=== PATIENT | male | born 1945 | race Caucasian/White ===

== ENCOUNTER 2019-01-26 01:29 | Inpatient (IN) | payer MEDICARE, OTHER ==
[2019-01-26] VITALS (17 sets, daily range): BP systolic 133–195; BP diastolic 66–99
[~2019-01-26] VITALS: Ht 170.2 cm; Wt 92.2 kg
[2019-01-26] MEDS ORDERED: FELO10TA PO (01:39)
[2019-01-26] MEDS ORDERED: ALTA1CAP4 PO (01:39)
[2019-01-26] MEDS ORDERED: CLON0.5T17 PO (01:39)
[2019-01-26] MEDS ORDERED: ATOR40TA75 PO (01:39)
[2019-01-26 02:14] LABS: BASO % 0.3 % (0.0-1.0); EOS # 0.2 10^3/uL (0.0-0.5); EOS % 1.7 % (0.0-3.0); HEMOGLOBIN 15.1 g/dl (13.5-17.5); LYMPH # 1.2 10^3/uL (1.5-5.0); LYMPH % 9.5 % (24.0-44.0); MEAN CORPUSCULAR HGB CONC 33.6 g/dl (32.0-36.5); MEAN CORPUSCULAR VOLUME 95.3 fl (80.0-96.0); MONO # 1.6 10^3/uL (0.0-0.8); MONO % 12.4 % (0.0-5.0); NEUTROPHILS # 9.5 10^3/uL (1.5-8.5); NEUTROPHILS % 75.9 % (36.0-66.0); PLATELET COUNT, AUTOMATED 179 10^3/uL (150-450); RED BLOOD COUNT 4.72 10^6/uL (4.30-6.10); WHITE BLOOD COUNT 12.5 10^3/uL (4.0-10.0)
[2019-01-26 02:51] LABS: BLOOD UREA NITROGEN 23 MG/DL (7-18); CALCIUM LEVEL 9.8 MG/DL (8.8-10.2); CARBON DIOXIDE LEVEL 29 MEQ/L (21-32); CHLORIDE LEVEL 105 MEQ/L (98-107); CREATININE FOR GFR 1.41 MG/DL (0.70-1.30); GLOMERULAR FILTRATION RATE 52.6 (>42); GLUCOSE, FASTING 136 MG/DL (70-100); POTASSIUM SERUM 3.9 MEQ/L (3.5-5.1); SODIUM LEVEL 140 MEQ/L (136-145)
[2019-01-26 03:07] LABS: ALBUMIN 3.9 GM/DL (3.2-5.2); ALT/SGPT 38 U/L (12-78); BILIRUBIN,DIRECT 0.3 MG/DL (0.0-0.2); BILIRUBIN,TOTAL 1.1 MG/DL (0.2-1.0); LIPASE 151 U/L (73-393); TOTAL PROTEIN 6.9 GM/DL (6.4-8.2)
[2019-01-26 03:24] LABS: TROPONIN I < 0.02 NG/ML (< 0.10)
[2019-01-26] MEDS ORDERED: PANTOPRAZOLE 40MG INJ (PROTONIX) (C9113) IV ONE (04:00)
[2019-01-26] MEDS ORDERED: GI COCKTAIL 50ML BTL(HYOSCYAMINE/MAALOX/LIDOCAINE VISCOUS)(1:3:1) PO ONE (04:00)
--- NOTE | 2019-01-26 05:40 | REPVR ---
PROCEDURE INFORMATION: Exam: US Abdomen Limited, Right Upper Quadrant Exam date and time: 01/26/19 (4:41am) Clinical history: 74 year old male. Acute RUQ pain. Evaluate for cholecystitis. TECHNIQUE: Imaging protocol: Real-time ultrasound of the abdomen with image documentation. Examination was focused on the right upper quadrant. COMPARISON: US RENAL of 06/10/14 FINDINGS: The liver is visually normal in size, with fatty infiltration. Distended gallbladder (meauring 10 x 4 x 4 cm in size)). Mildly thickened gallbladder wall (4.7 mm thicknss). Prominent gallstone (1.5 cm size). No pericholecystic fluid is appreciated. The CBD is not dilated (4.9 mm diameter). The pancreas is obscured by bowel gas. The right kidney measures 10.5 cm in length, with no hydronephrosis appreciated. Right upper renal pole cyst (2.4 x 2.2 x 2.4 cm size). No ascites is seen. IMPRESSION: Cannot exclude acute cholecystitis. Clinical correlation is needed. Prominent gallstone (1.5 cm size). Distended gallbladder. Thickened gallbladder wall (4.7 mm thickness). No biliary obstruction. If felt appropriate, can obtain nuclear medicine biliary scan for further evaluation. Electronically signed by: Bethany Pickering On 01/26/2019 05:40:31 AM
[2019-01-26] MEDS ORDERED: MORPHINE 4 MG/ML 1ML VIAL/SYRINGE (J2270) IV ONE ×2 (06:45→08:15)
[2019-01-26] MEDS: GASTROGRAFIN SOLUTION 30ML PO SCH ×2 (07:13→07:55)
[2019-01-26 08:19] LABS: CPK CREATINE PHOSPHOKINASE 53 U/L (39-308); MB/CK RELATIVE INDEX 1.89 (< OR =4); TROPONIN I < 0.02 NG/ML (< 0.10)
[2019-01-26] MEDS ORDERED: PIPERACILLIN/TAZOBACTAM SOD 3.375 GM in D5W MINI-BAG PLUS 50 ML IV ONE (09:00)
[2019-01-26] MEDS ORDERED: ISOVUE-370 76% 100ML VIAL (Q9967) As Ordered ONE (09:06)
[2019-01-26] MEDS ORDERED: NS 1,000 ML IV SCH (09:08)
[2019-01-26] MEDS ORDERED: diphenhydrAMINE INJ 50MG/ML VIAL (J1200) IV PRN (09:15)
[2019-01-26] MEDS ORDERED: ONDANSETRON 4MG/2ML VIAL (J2405) IV PRN ×2 (09:15→11:45)
[2019-01-26] MEDS ORDERED: NALOXONE INJ 0.4 MG/1 ML VIAL (J2310) IV PRN (09:15)
[2019-01-26] MEDS ORDERED: GLUCAGON FOR INJ 1 MG VIAL (J1610) SC PRN (09:15)
[2019-01-26] MEDS ORDERED: NS 1,000 ML IV ONE (09:15)
[2019-01-26] MEDS ORDERED: NALBUPHINE HCL 10 MG/ML AMP (J2300) IV PRN (09:15)
[2019-01-26] MEDS ORDERED: DEXTROSE 50% 50 ML SYRINGE IV PRN (09:15)
[2019-01-26] MEDS ORDERED: GLUCOSE 4 GM CHEW TABLET PO PRN (09:15)
[2019-01-26] MEDS ORDERED: MORPHINE 1MG/ML IN 0.9% NACL 100ML IV BAG IV PRN (09:15)
[2019-01-26] MEDS ORDERED: EPIDURAL/PCA KEYS XX PRN (09:15)
[2019-01-26] MEDS ORDERED: ASPI81TA26 PO (09:47)
[2019-01-26] MEDS ORDERED: FELO5TAB PO (09:47)
[2019-01-26] MEDS ORDERED: ADVI100T PO (09:47)
[2019-01-26] MEDS ORDERED: hydrALAZINE INJ 20 MG/ML VIAL IV ONE (10:00)
--- NOTE | 2019-01-26 10:04 | REP ---
CT ABDOMEN AND PELVIS WITH IV AND ORAL CONTRAST: HISTORY: Generalized abdominal pain. Comparison CT study June 27, 2014. CT CONTRAST DOSE: A 100 mL of intravenous Isovue 370. CT FINDINGS: Preliminary digital slater apprentice radiograph is noncontributory. The lung bases are clear on axial CT images. Liver and spleen are normal in size homogeneous in texture. There is an accessory splenule. The gallbladder is mildly distended and shows focal gallbladder wall thickening and enhancement. No stone is seen. The gallbladder measures up to 10.5 cm in length. No pancreatic abnormality is seen. There is a 2.5 cm cyst in the upper pole right kidney. Kidneys are otherwise morphologically intact. Vascular calcification is noted in a normal caliber aorta. There is mild left colonic diverticulosis without CT evidence of diverticulitis. No abdominal wall defect is seen. The prostate gland is mildly enlarged. Urinary bladder and seminal vesicles are unremarkable. A normal appendix is seen in the central pelvis. IMPRESSION: Left colonic diverticulosis. No CT evidence of diverticulitis. Normal appendix. Mildly distended gallbladder. Small cyst right kidney. Enlarged prostate. Otherwise unremarkable. Electronically Signed by José Coburn MD 01/26/2019 03:32 P
[2019-01-26] MEDS: D5W/0.45% SODIUM CHLORIDE 1,000 ML IV SCH ×2 (10:54→22:37)
[2019-01-26 10:55] LABS: HEMOGLOBIN A1c 5.8 %
[2019-01-26] MEDS: MORPHINE 4 MG/ML 1ML VIAL/SYRINGE (J2270) IV PRN ×2 (12:09→22:39)
[2019-01-26] MEDS: NITROGLYCERIN 2% OINT 1 GM *U/D* PKT TOP SCH ×2 (12:18→17:20)
--- NOTE | 2019-01-26 13:36 | HPE ---
DATE OF ADMISSION: 01/26/2019 PRIMARY CARE PHYSICIAN: Nathanael Pickering MD IN 2016, NO PRIMARY CARE PHYSICIAN CURRENTLY, LIVES IN [place] CHIEF COMPLAINT: Right upper quadrant abdominal pain since Friday. HISTORY OF PRESENT ILLNESS: This is a 74-year-old male with a past medical history significant for hypertension, hyperlipidemia, chronic kidney disease stage III, impaired fasting glucose, increased prostate-specific antigen (PSA) with prostate biopsy in 2008, obesity, bipolar disorder, nonalcoholic fatty liver disease, benign prostatic hypertrophy (BPH), lumbar disc disease and insomnia presented to the emergency room with complaints of right upper quadrant abdominal pain noted around 10 p.m. on Friday. The patient was thrashing about all night into Friday morning. He had a little bit of oyster crackers about 7 p.m. on Friday, but nothing since. It has been progressively worsening, took two tablets of Tylenol 200 mg one time without any relief. The patient had episodes of nausea without vomiting. Right upper quadrant pain and epigastric pain started to move across the abdomen, in the upper quadrants left and right. No radiation to the scapula or the back. The patient had half a shaved steak sandwich and Wolof fries Friday evening at 7 p.m. and has felt nauseous since. No fever or chills at home. Pain has been constant, rated as 2 out of 10, when he lays back and does not move, worse when he stands up and moves around. Feels like this is rock solid pain. No prior history in the past. He did not feel well and decided to come in for further evaluation. said he has been drinking maybe at most a half a bottle of water and half a wellington anuj. 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 The patient says that it is better sometimes to put pressure on his right side and to lay very, very still. The patient otherwise denies any chest pain, shortness of breath, palpitations, weight gain or weight loss, he has noted worsening when he eats fried foods and has decided not to eat much because of increasing pain. He otherwise denies any dysuria or urgency. Denies any frequency, flank pain. No constipation or diarrhea. No prior history of gallstones. No heavy alcohol abuse. says he drinks two trey, maybe two to three times a week, no heavily. The patient is generally healthy according to the , has a bike in the garage that he uses during the cold months, but usually rides his bike 10 miles about four times a week. No prior history of coronary artery disease (CAD) or congestive heart failure (CHF). Previously smoked in his 20s but has not smoked any cigarettes for decades. Hospitalist was called to admit for acute cholecystitis. PAST MEDICAL HISTORY: Bipolar disorder. Insomnia. Nonalcoholic fatty liver disease. BPH with lower urinary tract symptoms (LUTS). History of acute prostatitis. Chronic leukocytosis. Lumbar disc disease. Hypertension. Hyperlipidemia. Chronic kidney disease stage III. Ultrasound consistent with medical renal disease, a 19 mm renal cyst on the right. Impaired fasting glucose. Increased PSA with prostate biopsy [place] [address] Lu. Obesity. ALLERGIES: 1. NORVASC causing nausea. SURGICAL HISTORY: Repaired upper eyelid Repaired Achilles tendon. Bilateral cataract surgery. Colonoscopy with hyperplastic polyps, adenomatous polyp, by Dr. Bob in 2002. Left lateral forehead lipoma excision. FAMILY HISTORY: Mother and father are in their 80s of old age, unknown medical problems. SOCIAL HISTORY: Former smoker in his 20s. He has not touched any cigarettes for decades. The patient drinks alcohol one to two glasses of wine about three times a week socially. 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 He has two children from a previous marriage, a son in [place], another son in [place] with grandchildren. He also has a stepchild with his current . His Shyann is the healthcare proxy. He is a F[employer]. The emergency contact number cell phone for Shyann is [phone], his . REVIEW OF SYSTEMS: Per HPI, 12 point system otherwise negative. PHYSICAL EXAMINATION: Temperature 97, pulse 75, respiratory rate 18, blood pressure 209/99, 95% on room air, respiratory rate 16, heart rate is 71 and sinus rhythm. Generally awake, alert, oriented times three, anicteric, no jaundice. No jugular venous distention (JVD). No thyromegaly. Lungs are clear to auscultation. No wheezing, rales or rhonchi. Heart S1, S2, sinus rhythm. No murmurs, rubs or gallops. Abdomen is soft, tender in the epigastrium, right upper quadrant. No rebound or guarding. Positive bowel sounds times four quadrants. Extremities no cyanosis, clubbing or pitting edema. EKG pending. White count 12.5, hemoglobin 15, hematocrit 45, platelet count 179. Sodium 140, potassium 3.9, chloride 105, bicarb 29, BUN 23, creatinine 1.41, glucose 136, lactic acid 1.5, total bilirubin 1.1, direct bilirubin 0.3, AST 20, ALT 38, alkaline phosphatase 114, total CK 53, MB fraction 1, relative index 1.89, troponin less than 0.02. Two sets of blood cultures are pending. Gallbladder ultrasound thickened gallbladder wall 4.7 mm thick, CBD not dilated. Pancreas is obscured by bowel gas. Distended gallbladder 10 x 4 x 4 cm in size. Mildly thickened gallbladder wall. No pericholecystic fluid. Prominent gallstone. Right kidney measures 10.5 cm with no hydronephrosis appreciated. Cannot exclude acute cholecystitis. Prominent gallstone, distended gallbladder. ASSESSMENT/PLAN: This is a 74-year-old male with a history of impaired glucose, hypertension, hyperlipidemia, chronic simple renal cyst, 19 mm on the right, history of elevated PSA, obesity, bipolar disorder, insomnia, nonalcoholic fatty liver disease, BPH, chronic lumbar disc disease, blepharoplasty, repaired Achilles tendon, bilateral cataract surgery, hyperplastic and adenomatous polyps, lipoma removed who presented to the emergency room with complaints of right upper quadrant epigastric abdominal pain since Friday without fever or chills at home, found to have a distended gallbladder with a 1.5 cm gallstone. IMPRESSION: 1. Acute cholecystitis. pt has been having Biliary colic at home for the past few days without fever. Developed a fever and white count of 12.5. There is no biliary ductal dilatation. General surgeon, Dr. Goff, has been consulted for help in management. Currently nothing by mouth status. IV Zosyn every 6 hours. IV fluids and pain medications. CT abdomen and pelvis has been obtained. Lipase level is within normal limits. The patient is visiting from [place] and would like to return on . Defer to surgery regarding further management. Check lipid panel, calcium level. Nothing by mouth status, IV fluids, fingerstick every 6 hours and hypoglycemic protocol. 2. Hypertensive urgency secondary to severe pain. The patient is allergic to Norvasc with pulse in the 60s and 70s. Avoid beta blockade and Norvasc. The patient will be given pain medications, which hopefully will decrease his blood pressure. No ELIZABETH inhibitor at this time due to chronic kidney disease. Will try hydralazine, change to PCU status. Nitroglycerin patch, monitor for headaches. 3. Prediabetic, impaired glucose. Check A1c. 4. Chronic kidney disease. Avoid nephrotoxins, renally dose all medications. 5. Bipolar disorder. Hold off on current medications due to nothing by mouth status. 6. Dyslipidemia. Hold off on the patient's atorvastatin. 7. Deep vein thrombosis (DVT) prophylaxis. Compression stockings. MTDD
[2019-01-26] MEDS: hydrALAZINE INJ 20 MG/ML VIAL IV SCH ×3 (14:00→22:38)
[2019-01-26 15:51] LABS: ALBUMIN 3.4 GM/DL (3.2-5.2); BILIRUBIN,TOTAL 2.2 MG/DL (0.2-1.0); CALCIUM LEVEL 8.8 MG/DL (8.8-10.2); CREATININE FOR GFR 1.28 MG/DL (0.70-1.30); GLOMERULAR FILTRATION RATE 58.8 (>42); POTASSIUM SERUM 4.8 MEQ/L (3.5-5.1); TOTAL PROTEIN 6.6 GM/DL (6.4-8.2)
[2019-01-26] MEDS: PIPERACILLIN/TAZOBACTAM SOD 3.375 GM in D5W MINI-BAG PLUS 50 ML IV SCH ×2 (17:19→22:48)
--- NOTE | 2019-01-26 22:18 | REPVR ---
PROCEDURE INFORMATION: Exam: MR Abdomen Without Contrast Exam date and time: 01/26/2019 9:23 PM Age: 74 years old Clinical history: Abdominal pain; Acute; Additional info: ? Cbd stone TECHNIQUE: Imaging protocol: MR of the abdomen without contrast. 3D rendering: MIP reconstructed images were created and reviewed. COMPARISON: GALLBLADDER US 01/26/2019 4:36 AM FINDINGS: Liver: No mass. Gallbladder and bile ducts: There is a 2.8 cm stone in the gallbladder neck. Gallbladder is distended with mild gallbladder wall thickening. Gallbladder wall measures up to 5 mm thick. No intrahepatic or extrahepatic blurry duct dilation. No common bile duct calculus is seen Pancreas: Main pancreatic duct is borderline dilated at 4 mm. No pancreatic duct calculus or mass. Spleen: Unremarkable. No splenomegaly. Adrenals: Unremarkable. No mass. Kidneys and ureters: Mildly atrophic. No solid mass. No hydronephrosis. Stomach and bowel: Unremarkable. Intraperitoneal space: No fluid collection. Arteries: No abdominal aortic aneurysm. Bones/joints: Unremarkable. Soft tissues: Unremarkable. IMPRESSION: 1. Large stone in the gallbladder neck with gallbladder distention and wall thickening suggesting cholecystitis. 2. No biliary ductal dilation or common bile duct stone. 3. Borderline pancreatic duct dilation. No pancreatic duct stone or mass. Electronically signed by: Jossue Ordoñez On 01/26/2019 22:18:33 PM
--- NOTE | 2019-01-26 23:43 | ECGEPIP ---
[facility] - ED Test Date: 2019-01-26 Pat Name: CATE COOK Department: Room: [place] [address] Gender: Male Legal Billing Clerk: OPAL : 1945 Requested By: JERRY Juraez Order Number: [id number] Reading MD: Dustin Duggan Measurements Intervals [place] Rate: 64 P: 35 [place]: 158 QRS: 32 QRSD: 80 T: 70 QT: 386 QTc: 399 Interpretive Statements SINUS RHYTHM NONSPECIFIC T-WAVE ABNORMALITY POSSIBLE PRIOR INFERIOR INFARCT SIMILAR TO PRIOR ON SAME DATE Electronically Signed on 01-26-2019 23:43:29 EST by Dustin Duggan
--- NOTE | 2019-01-26 23:43 | ECGEPIP ---
[facility] - ED Test Date: 2019-01-26 Pat Name: CATE COOK Department: Room: [place] [address] Gender: Male Seat Cover Installer: bettye : 1945 Requested By: JERRY Juarez Order Number: [id number] Reading MD: Dustin Duggan Measurements Intervals [place] Rate: 67 P: 45 AR: 156 QRS: 43 QRSD: 80 T: 73 QT: 384 QTc: 407 Interpretive Statements SINUS RHYTHM NONSPECIFIC T-WAVE ABNORMALITY POSSIBLE PRIOR INFERIOR INFARCT NO PRIORS FOR COMPARISON Electronically Signed on 01-26-2019 23:43:13 EST by Dustin Duggan
[2019-01-27] VITALS (9 sets, daily range): BP systolic 140–168; BP diastolic 68–108
[2019-01-27] MEDS: MORPHINE 4 MG/ML 1ML VIAL/SYRINGE (J2270) IV PRN ×5 (00:13→17:38)
[2019-01-27] MEDS: ACETAMINOPHEN 650 MG SUPP PR PRN ×2 (01:19→09:02)
[2019-01-27] MEDS: hydrALAZINE INJ 20 MG/ML VIAL IV SCH ×3 (01:36→10:00)
[2019-01-27] MEDS: PIPERACILLIN/TAZOBACTAM SOD 3.375 GM in D5W MINI-BAG PLUS 50 ML IV SCH ×4 (05:04→22:29)
[2019-01-27 05:55] LABS: HEMATOCRIT 42.7 % (42.0-52.0); HEMOGLOBIN 14.1 g/dl (13.5-17.5); MEAN CORPUSCULAR HEMOGLOBIN 31.7 pg (27.0-33.0); PLATELET COUNT, AUTOMATED 147 10^3/uL (150-450); RED BLOOD COUNT 4.45 10^6/uL (4.30-6.10); WHITE BLOOD COUNT 13.8 10^3/uL (4.0-10.0)
[2019-01-27] MEDS: NITROGLYCERIN 2% OINT 1 GM *U/D* PKT TOP SCH ×4 (06:00→18:00)
[2019-01-27 06:15] LABS: ALBUMIN 3.2 GM/DL (3.2-5.2); BILIRUBIN,TOTAL 2.2 MG/DL (0.2-1.0); CALCIUM LEVEL 8.6 MG/DL (8.8-10.2); CHOLESTEROL RISK RATIO 1.65 (<5); CREATININE FOR GFR 1.33 MG/DL (0.70-1.30); GLOMERULAR FILTRATION RATE 56.3 (>42); POTASSIUM SERUM 3.9 MEQ/L (3.5-5.1); TOTAL PROTEIN 7.1 GM/DL (6.4-8.2)
[2019-01-27] MEDS: D5W/0.45% SODIUM CHLORIDE 1,000 ML IV SCH ×2 (10:21→17:07)
--- NOTE | 2019-01-27 11:15 | IPNPDOC ---
Text Note Date of Service The patient was seen on 01/27/19. NOTE SUBJECTIVE: Pain better this morning with pain medications. Says the medications are making him a little confused. No nausea or vomiting. No bowel movements. Says has not passed gas also. Has a spike of fever last night and low grade fever this am. PHYSICAL EXAMINATION: Vitals: As below Generally awake, alert, oriented times three, laying down in bed in no acute distress. HEENT: anicteric, no jaundice. MADDI NECK: No jugular venous distention (JVD). No thyromegaly. Lungs are clear to auscultation. No wheezing, rales or rhonchi. Heart S1, S2, sinus rhythm. No murmurs, rubs or gallops. Abdomen is soft, tender in the epigastrium, right upper quadrant. No rebound or guarding. Positive bowel sounds times four quadrants. Extremities no cyanosis, clubbing or pitting edema. Labs and radiology: Reviewed. ASSESSMENT AND PLAN: This is a 74-year-old male with a past medical history significant for hypertension, hyperlipidemia, chronic kidney disease stage III, impaired fasting glucose, increased prostate-specific antigen (PSA) with prostate biopsy in 2008, obesity, bipolar disorder, nonalcoholic fatty liver disease, benign prostatic hypertrophy (BPH), lumbar disc disease and insomnia presented to the emergency room with complaints of severe right upper quadrant abdominal pain for 2 days . He was found to have acute Cholecystitis with Gall stone at the neck of the gall bladder but none in chantal CBD. No biliary ductal obstruction. Acute cholecystitis will continue NPO, IVF, Zosyn. tylenol and morphine. Surgical consult appreciated. Hypertension willl start amlodipine in place of felodipine will add lisinopril as needed and nitropaste is in place with hold parameters. Hyperlipidemia will hold statin till dc. CKD stage III creatinine at baseline will continue to monitor. Bipolar disorder, Insomnia. clonazepam prn. DVT prophylaxis ordered VS,Fishbone, I+O VS, Fishbone, I+O Laboratory Tests 01/26/19 14:57 01/27/19 05:27 Vital Signs Date Time Temp Pulse Resp B/P (MAP) Pulse Ox O2 Delivery O2 Flow Rate FiO2 01/27/19 10:28 142/68 (92) 01/27/19 10:20 100.3 77 19 96 Room Air I&O- Last 24 Hours up to 6 AM 01/27/19 06:00 Intake Total 2100 ml Output Total 400 ml Balance 1700 ml MIMI ESPINO MD Jan 27, 2019 11:15
--- NOTE | 2019-01-27 11:58 | CR ---
DATE: 01/26/2019 Patient was seen in the afternoon after being admitted through the hospitalist system, and noticed that the abdominal pain was much better than it was earlier in the day, was not having any fevers at that time and overall feeling better. Although states that he has pressure all across his upper abdomen, he has not had any diarrhea and, as the story goes for his abdominal pain, is that he has not had this abdominal pain previously and, essentially, started up with epigastric abdominal pain for approximately 48 hours prior to admission. The [place] of [place] and [place] primary care taken care of out of state as well. He does complain that his urine seems to be much darker than it was previously, and he has not had any acholic stools. Has not had any previous episodes of gastrointestinal (GI) complaints. He does have some nonalcoholic fatty liver disease but was not told that he had any cirrhosis, and on initial evaluation in the emergency room, underwent a gallbladder ultrasound, which revealed a distended gallbladder with some minimal gallbladder wall thickening and a gallstone. No pericholecystic fluid was appreciated. A CAT scan was performed that revealed a mildly distended gallbladder without evidence of gallbladder wall thickening, inflammation. His white count was elevated, and his liver function tests reveal essentially a slightly elevated bilirubin of 1.1. PAST MEDICAL HISTORY: Is significant for history of chronic kidney disease, hypertension, hyperlipidemia, bipolar disorder, nonalcoholic fatty liver disease, BPH, lumbar disc disease. SURGICAL HISTORY: Repaired Achilles tendon, eyelid surgery, cataract surgery. MEDICATIONS: Include the following; - aspirin - atorvastatin - ramipril - clonazepam - felodipine - ibuprofen PHYSICAL EXAM: Reveals a 74-year-old male who looks stated age. HEENT is unremarkable. Lungs are clear anteriorly. Heart is regular. Abdomen is softly distended, tympanitic throughout the upper abdomen. He has some mild tenderness in the right upper quadrant in the epigastric area, and he states that this tenderness is better than when it was present earlier in the morning. Extremities: Warm, well-perfused. IMPRESSION/PLAN: Patient's pain seems to be a little bit more than I would expect it to be given the mild inflammation appreciated on the CAT scan and the gallbladder ultrasound, thus I will order a followup CPA this afternoon. If his liver function tests are going up, I do have concerns that he may actually have a common bile duct stone. If his liver function tests (LFTs) are elevated. Will order an magnetic resonance cholangiopancreatography (MRCP) for further evaluation, and depending on the results of that, then may need an endoscopic retrograde cholangiopancreatography (ERCP), etc. In any case, I would recommend continued treatment with nothing by mouth, intravenous (IV) fluids, IV antibiotics at this time.
[2019-01-27] MEDS: HEPARIN SOD (PORCINE) 5000 UNITS/ML VIAL SQ SCH ×2 (12:49→20:40)
[2019-01-27] MEDS: amLODIPine 5 MG TAB PO SCH ×2 (12:50→20:41)
--- NOTE | 2019-01-27 13:18 | IPN ---
DATE: 01/27/2019 Patient overall seems much more comfortable in bed this morning and is not complaining of any specific pains, more of a headache today than he is complaining of abdominal pain. He has had a fever last night, but once the fever broke he states that his abdominal pain has been much better. He is not having any significant bowel movements, although he has had some flatus. He is somewhat difficult to pin down on his overall discomfort level and as it gets thought though his is present with him at all times and she states that he seems to be much more comfortable moving around and from an activity standpoint and does not really seem to be complaining of abdominal issues, more so of his headache issues. And he had been taking some pain medication but his feels that it was mostly secondary to headache issues. In any case, his white count is up a little bit this morning and his LFTs although his bilirubin is stable his AST, ALT and alk phos are slightly down this morning. The MRI did show some gallbladder wall thickening and consistent with acute cholecystitis. No ductal dilatation was appreciated. On his physical exam he is mildly distended still and he is having some discomfort in the right upper quadrant without significant guarding or peritoneal signs but definitely mildly tender appearing. IMPRESSION AND PLAN: The patient has cholecystitis and at this point I have had the discussion with them, they wound prefer to see if things could quiet down and have his surgical issues dealt with in [place], however, after a long discussion I have indicated to them that he overall looks better and it may be reasonable to see how his white count goes or whether his LFTs are improved again tomorrow given that he has had some improvement clinically. Otherwise if he is having increasing pain, fevers, chills, etc. then more urgent intervention would be necessary. They understand our options at this time and will discuss further intervention and evaluation for him depending on his overall progress.
[2019-01-27] MEDS: ACETAMINOPHEN TAB 650MG DOSE (2X325MG) PO PRN (20:44)
[2019-01-28] VITALS (7 sets, daily range): BP systolic 129–151; BP diastolic 66–79
[2019-01-28] MEDS: MORPHINE 4 MG/ML 1ML VIAL/SYRINGE (J2270) IV PRN ×4 (00:48→14:22)
[2019-01-28] MEDS: D5W/0.45% SODIUM CHLORIDE 1,000 ML IV SCH ×3 (02:15→21:34)
[2019-01-28] MEDS: NITROGLYCERIN 2% OINT 1 GM *U/D* PKT TOP SCH ×5 (05:30→23:52)
[2019-01-28] MEDS: PIPERACILLIN/TAZOBACTAM SOD 3.375 GM in D5W MINI-BAG PLUS 50 ML IV SCH ×4 (05:34→23:45)
[2019-01-28] MEDS: ACETAMINOPHEN TAB 650MG DOSE (2X325MG) PO PRN ×3 (05:35→14:22)
[2019-01-28 06:53] LABS: BASO % 0.3 % (0.0-1.0); EOS # 0.2 10^3/uL (0.0-0.5); EOS % 1.2 % (0.0-3.0); HEMATOCRIT 39.7 % (42.0-52.0); HEMOGLOBIN 13.2 g/dl (13.5-17.5); LYMPH # 0.8 10^3/uL (1.5-5.0); LYMPH % 6.1 % (24.0-44.0); MEAN CORPUSCULAR HGB CONC 33.2 g/dl (32.0-36.5); MEAN CORPUSCULAR VOLUME 96.1 fl (80.0-96.0); MONO # 1.3 10^3/uL (0.0-0.8); MONO % 9.5 % (0.0-5.0); NEUTROPHILS # 11.3 10^3/uL (1.5-8.5); NEUTROPHILS % 82.2 % (36.0-66.0); PLATELET COUNT, AUTOMATED 158 10^3/uL (150-450); RED BLOOD COUNT 4.13 10^6/uL (4.30-6.10); WHITE BLOOD COUNT 13.7 10^3/uL (4.0-10.0)
[2019-01-28 07:21] LABS: ALT/SGPT 91 U/L (12-78); BILIRUBIN,TOTAL 2.5 MG/DL (0.2-1.0); BLOOD UREA NITROGEN 12 MG/DL (7-18); CALCIUM LEVEL 8.6 MG/DL (8.8-10.2); CARBON DIOXIDE LEVEL 27 MEQ/L (21-32); CHLORIDE LEVEL 102 MEQ/L (98-107); GLOMERULAR FILTRATION RATE > 60.0 (>42); GLUCOSE, FASTING 132 MG/DL (70-100); POTASSIUM SERUM 3.6 MEQ/L (3.5-5.1); SODIUM LEVEL 135 MEQ/L (136-145)
[2019-01-28] MEDS: amLODIPine 5 MG TAB PO SCH ×2 (09:23→21:32)
--- NOTE | 2019-01-28 12:22 | IPNPDOC ---
Text Note Date of Service The patient was seen on 01/28/19. NOTE SUBJECTIVE: Had low grade fever yesterday and again spiked another temp of 101.5 this am. Continues to have RUQ pain . No nausea or vomiting. No bowel movements. Says has not passed gas also. WBC no improvement yet though LFTs are improving. May need surgical intervention this admission. Surgery to reevaluate today. PHYSICAL EXAMINATION: Vitals: As below Generally awake, alert, oriented times three, laying down in bed in no acute distress. HEENT: anicteric, no jaundice. MADDI NECK: No jugular venous distention (JVD). No thyromegaly. Lungs are clear to auscultation. No wheezing, rales or rhonchi. Heart S1, S2, sinus rhythm. No murmurs, rubs or gallops. Abdomen is soft, tender in the epigastrium, right upper quadrant. No rebound or guarding. Positive bowel sounds times four quadrants. Extremities no cyanosis, clubbing or pitting edema. Labs and radiology: Reviewed. ASSESSMENT AND PLAN: This is a 74-year-old male with a past medical history significant for hypertension, hyperlipidemia, chronic kidney disease stage III, impaired fasting glucose, increased prostate-specific antigen (PSA) with prostate biopsy in 2008, obesity, bipolar disorder, nonalcoholic fatty liver disease, benign prostatic hypertrophy (BPH), lumbar disc disease and insomnia pr esented to the emergency room with complaints of severe right upper quadrant abdominal pain for 2 days . He was found to have acute Cholecystitis with Gall stone at the neck of the gall bladder but none in chantal CBD. No biliary ductal obstruction. Acute cholecystitis will continue NPO, IVF, Zosyn. tylenol and morphine. Surgical consult appreciated. Plan as per surgery. Hypertension amlodipine in place of felodipine will add lisinopril as needed and nitropaste is in place with hold parameters. Hyperlipidemia will hold statin till dc. CKD stage III creatinine at baseline will continue to monitor. Bipolar disorder, Insomnia. clonazepam prn. DVT prophylaxis ordered VS,Fishbone, I+O VS, Fishbone, I+O Laboratory Tests 01/28/19 06:30 Vital Signs Date Time Temp Pulse Resp B/P (MAP) Pulse Ox O2 Delivery O2 Flow Rate FiO2 01/28/19 09:55 18 Room Air 11/21/19 09:46 98.1 01/28/19 09:23 81 151/78 01/28/19 06:00 95 I&O- Last 24 Hours up to 6 AM 01/28/19 06:00 Intake Total 1650 ml Output Total 775 ml Balance 875 ml MIMI ESPINO MD Jan 28, 2019 12:22
[2019-01-28] MEDS ORDERED: ISOVUE-300 61% 50ML VIAL (Q9967) As Ordered ONE (15:02)
[2019-01-28] MEDS ORDERED: LIDOCAINE 1% MDV 20ML VIAL As Ordered ONE (15:02)
--- NOTE | 2019-01-28 15:11 | IRMSE ---
[facility] IR Moderate Sedation Eval. Date and Time Date: Jan 28, 2019 Time: 15:11 ASA Classification ASA Classification: II-Mild systemic disease Mallampati Score: II NPO: Yes Obstructive Sleep Apnea: No Interval Plan: moderate sedation MOISÉS MILAN MD Jan 28, 2019 15:11
[2019-01-28] MEDS ORDERED: fentaNYL 100 MCG/2 ML INJECTION (J3010) As Ordered ONE ×4 (15:14→19:13)
[2019-01-28] MEDS ORDERED: diphenhydrAMINE INJ 50MG/ML VIAL (J1200) As Ordered ONE (15:14)
[2019-01-28] MEDS ORDERED: HEPARIN 1,000 UNITS/ML 10ML VIAL (FOR RADIOLOGY& DIALYSIS ONLY) As Ordered ONE (15:15)
[2019-01-28] MEDS ORDERED: MIDAZOLAM INJ 2 MG/2 ML VIAL (J2250) As Ordered ONE ×2 (15:15→16:47)
[2019-01-28] MEDS ORDERED: BUPIVACAINE/EPIN 0.25% 30 ML VIAL As Ordered ONE (16:46)
[2019-01-28] MEDS ORDERED: ONDANSETRON 4MG/2ML VIAL (J2405) As Ordered ONE (16:47)
[2019-01-28] MEDS ORDERED: dexameTHASONE 4 MG/ML 1ML VIAL (J1100) As Ordered ONE (16:47)
[2019-01-28] MEDS ORDERED: KETOROLAC 60 MG/2 ML VIAL (J1885) As Ordered ONE (16:47)
[2019-01-28] MEDS ORDERED: ROCURONIUM BROMIDE 50 MG/5 ML VIAL As Ordered ONE (16:47)
[2019-01-28] MEDS ORDERED: ACETAMINOPHEN 1000MG 100ML IV BTL (OFIRMEV) (J0131 PER 10MG) As Ordered ONE (16:47)
[2019-01-28] MEDS ORDERED: PROPOFOL 200 MG/20 ML VIAL As Ordered ONE (16:47)
[2019-01-28] MEDS ORDERED: LIDOCAINE 2% INJ 100 MG/5 ML SDV (FOR ANES.) As Ordered ONE (16:47)
[2019-01-28] MEDS ORDERED: SUGAMMADEX SODIUM 500 MG/5 ML VIAL (BRIDION) As Ordered ONE (16:47)
[2019-01-28] MEDS ORDERED: ZOSYN 3.375 GM VIAL (J2543) As Ordered ONE (17:30)
[2019-01-28] MEDS ORDERED: LABETALOL HCL 100 MG/20 ML VIAL As Ordered ONE (18:02)
[2019-01-28] MEDS ORDERED: hydrALAZINE INJ 20 MG/ML VIAL As Ordered ONE (19:07)
[2019-01-28] MEDS: hydrALAZINE INJ 20 MG/ML VIAL IV SCH ×11 (19:09→21:15)
[2019-01-28] MEDS ORDERED: LR 1,000 ML IV SCH (20:00)
[2019-01-28] MEDS ORDERED: oxyCODONE 5MG TAB PO PRN (20:00)
[2019-01-28] MEDS ORDERED: fentaNYL 100 MCG/2 ML INJECTION (J3010) IV PRN (20:00)
[2019-01-28] MEDS ORDERED: ONDANSETRON 4MG/2ML VIAL (J2405) IV PRN (20:00)
[2019-01-28] MEDS: ACETAMINOPHEN TAB 650MG DOSE (2X325MG) PO SCH ×2 (21:13→23:53)
[2019-01-28] MEDS: KETOROLAC 30 MG/ML VIAL (J1885) IV SCH (21:30)
[2019-01-29] VITALS (7 sets, daily range): BP systolic 120–164; BP diastolic 60–80
[2019-01-29] MEDS: KETOROLAC 30 MG/ML VIAL (J1885) IV SCH ×4 (01:21→18:21)
[2019-01-29] MEDS: PIPERACILLIN/TAZOBACTAM SOD 3.375 GM in D5W MINI-BAG PLUS 50 ML IV SCH ×4 (05:34→23:04)
[2019-01-29] MEDS: ACETAMINOPHEN TAB 650MG DOSE (2X325MG) PO SCH ×4 (05:35→23:04)
[2019-01-29] MEDS: NITROGLYCERIN 2% OINT 1 GM *U/D* PKT TOP SCH ×2 (05:35→11:07)
[2019-01-29] MEDS: D5W/0.45% SODIUM CHLORIDE 1,000 ML IV SCH (06:43)
[2019-01-29 07:11] LABS: BASO % 0.1 % (0.0-1.0); HEMATOCRIT 37.6 % (42.0-52.0); HEMOGLOBIN 12.4 g/dl (13.5-17.5); LYMPH # 0.5 10^3/uL (1.5-5.0); LYMPH % 5.1 % (24.0-44.0); MEAN CORPUSCULAR VOLUME 97.2 fl (80.0-96.0); MONO # 0.8 10^3/uL (0.0-0.8); MONO % 7.4 % (0.0-5.0); NEUTROPHILS # 9.3 10^3/uL (1.5-8.5); NEUTROPHILS % 86.7 % (36.0-66.0); PLATELET COUNT, AUTOMATED 164 10^3/uL (150-450); RED BLOOD COUNT 3.87 10^6/uL (4.30-6.10); WHITE BLOOD COUNT 10.7 10^3/uL (4.0-10.0)
[2019-01-29 07:40] LABS: ALBUMIN 2.6 GM/DL (3.2-5.2); ALT/SGPT 80 U/L (12-78); BILIRUBIN,TOTAL 1.2 MG/DL (0.2-1.0); BLOOD UREA NITROGEN 14 MG/DL (7-18); CALCIUM LEVEL 8.3 MG/DL (8.8-10.2); CARBON DIOXIDE LEVEL 26 MEQ/L (21-32); CHLORIDE LEVEL 105 MEQ/L (98-107); CREATININE FOR GFR 1.17 MG/DL (0.70-1.30); GLOMERULAR FILTRATION RATE > 60.0 (>42); GLUCOSE, FASTING 193 MG/DL (70-100); SODIUM LEVEL 137 MEQ/L (136-145); TOTAL PROTEIN 6.7 GM/DL (6.4-8.2)
[2019-01-29] MEDS: amLODIPine 5 MG TAB PO SCH ×2 (08:38→21:29)
--- NOTE | 2019-01-29 11:33 | IPNPDOC ---
Text Note Date of Service The patient was seen on 01/29/19. NOTE SUBJECTIVE: patient had laproscopic cholecystectomy last night . This am feeling much better, dies any abdominal pain , nausea or vomiting. No fever or chills, no chest pain or sob. no bowel movement yet. PHYSICAL EXAMINATION: Vitals: As below Generally awake, alert, oriented times three, laying down in bed in no acute distress. HEENT: anicteric, no jaundice. MADDI NECK: No jugular venous distention (JVD). No thyromegaly. Lungs are clear to auscultation. No wheezing, rales or rhonchi. Heart S1, S2, sinus rhythm. No murmurs, rubs or gallops. Abdomen is soft, tender in the epigastrium, right upper quadrant. No rebound or guarding. Positive bowel sounds times four quadrants. Extremities no cyanosis, clubbing or pitting edema. Labs and radiology: Reviewed. ASSESSMENT AND PLAN: This is a 74-year-old male with a past medical history significant for hypertension, hyperlipidemia, chronic kidney disease stage III, impaired fasting glucose, increased prostate-specific antigen (PSA) with prostate biopsy in 2008, obesity, bipolar disorder, nonalcoholic fatty liver disease, benign prostatic hypertrophy (BPH), lumbar disc disease and insomnia presented to the emergency room with complaints of severe right upper quadrant abdominal pain for 2 days . He was found to have acute Cholecystitis with Gall stone at the neck of the gall bladder but none in chantal CBD. No biliary ductal obstruction. Acute cholecystitis with gall stones at the neck of gall bladder s/p laprascopic cholecystectomy on 01/28/19 diet advanced to clear liquids Hypertension amlodipine in place of felodipine restart ramipril. Hyperlipidemia will hold statin till dc. CKD stage III creatinine at baseline will continue to monitor. Bipolar disorder, Insomnia. clonazepam prn. DVT prophylaxis ordered VS,Fishbone, I+O VS, Fishbone, I+O Laboratory Tests 01/29/19 06:42 Vital Signs Date Time Temp Pulse Resp B/P (MAP) Pulse Ox O2 Delivery O2 Flow Rate FiO2 01/29/19 11:07 121/62 01/29/19 08:34 97.5 73 16 01/29/19 05:58 Room Air 01/29/19 04:00 2.0 01/29/19 04:00 96 I&O- Last 24 Hours up to 6 AM 01/29/19 06:00 Intake Total 1895 ml Output Total 1100 ml Balance 795 ml MIMI ESPINO MD Jan 29, 2019 11:33
--- NOTE | 2019-01-29 13:09 | REP ---
Examination: Limited CT abdomen. Indication: Acute cholecystitis. Referral for cholecystostomy. Referring physician Dr. Goff. Findings: CT images through the gallbladder demonstrate mild distension of the gallbladder and hyperdense material or sludge ball in the neck of the gallbladder. Trace pericholecystic fluid and fat stranding. No adjacent abscess. No free intraperitoneal fluid. No gallbladder perforation. No intra or extrahepatic biliary duct dilation. Impression: Cholecystitis without gallbladder perforation or abscess formation. I discussed the case with Dr. Goff. We decided to go with conservative and/or surgical management rather then cholecystostomy catheter which would have to remain for 4 to 6 weeks. Rest of management per Dr. Goff. Thank you this referral. Electronically Signed by Jennifer Rock MD 01/29/2019 01:00 P
--- NOTE | 2019-01-29 14:04 | IPN ---
DATE: 01/28/2019 The patient overall states that he is relatively stable on his abdominal pain. It intermittently gets worse and he has been taking some intermittent pain medication for this as well as headache he still has and his temperature still spiked overnight, and his white count did not come down today. After discussion with him and examination of him earlier in the day, we scheduled a percutaneous drainage with ultrasound for a cholecystostomy tube.I was present while he was undergoing evaluation in the interventional suite and they moved him to CT because they were not able to see his gallbladder well enough and at CT the gallbladder was inflamed but there was not a lot of pericholecystic fluid or inflammation in the colon or in the surrounding fat in this area. Suggesting that this is may still be severe acute cholecystitis. However without significant inflammatory changes. I had the discussion with the patient and his family that we should proceed with operative intervention/laparoscopic cholecystectomy. After a discussion of the risks versus benefits the patient understands and would like to proceed with operative intervention understanding that his risks include, but are not limited to, infection, bleeding, damage to surrounding structures including bile ducts and he would like to proceed with this as scheduled. FREDRICK
--- NOTE | 2019-01-29 14:06 | IPN ---
DATE: 01/29/2019 The patient has made some good progress overnight and overall feels much better. His white count is down to 10.7. His temperature is normal. And overall, his abdomen is soft, nondistended today and he is not having any other complaints. IMPRESSION AND PLAN: The patient's seems to be making some good progress. Will start him on a clear liquid diet and progress his diet as tolerated. I anticipate he will probably be discharged tomorrow and I would recommend possibly treating him with 3-5 days of p.o. antibiotics given the significant inflammation that was appreciated at the time, but otherwise, should be able to followup with his primary care provider in [place] when he flies down over the next week.
--- NOTE | 2019-01-29 14:16 | RO ---
DATE OF PROCEDURE: 01/28/2019 PREOPERATIVE DIAGNOSIS: Acute cholecystitis. POSTOPERATIVE DIAGNOSIS: Acute cholecystitis. PROCEDURE: Laparoscopic cholecystectomy. SURGEON: Dr. Ulises Goff PARTNER MANAGEMENT CONSULTANT: ANESTHESIA: General endotracheal anesthesia. ESTIMATED BLOOD LOSS: 50 mL. FLUIDS: Crystalloid. BRIEF PROCEDURE SUMMARY: The patient was brought to the operating room and was given general anesthesia. After adequate anesthesia and preoperative antibiotics were given, the patient was prepped and draped in the usual sterile fashion. Next, a supraumbilical incision was made with skin knife. Blunt dissection was carried down to fascia. The fascia was entered with Veress needle and insufflated to 15 mm of pressure. A dilating 10 mm trocar was placed at this time and under direct visualization an epigastric and two lateral trocars were placed. The patient was placed in a head-up left side down position and the gallbladder was tensely distended and thus an aspiration needle was used to decompress this completely. The gallbladder was grasped, retracted superiorly. There was omentum adherent to the gallbladder itself and to the neck of the gallbladder, but this was easily taken down with some minimal blunt dissection. No significant oozing was appreciated with this. However, the gallbladder wall was quite thickened throughout and there was a great deal of edema of the wall with some mild oozing with dissection, but first the peritoneum was taken down on the lateral side and then across the anterior surface of the neck of the gallbladder and then medially. A good window was created behind the neck of the gallbladder with some minimal blunt dissection with a peanut dissector and then further dissection on both sides medially and laterally isolated out the artery. Then there was a branch of the artery coming up closer to the neck, this was clipped and then transected and then the cystic artery was followed up and clipped as well. The peritoneum was quite thickened in a bunch of different areas and some of the areas were thick enough that they oozed despite the hook cautery coming through the wall very slowly. I placed a couple of clips on the edges of this. Good hemostasis was achieved using this technique. Eventually after the cystic artery and cystic duct were well visualized, the cystic artery was taken first . Then I could further mobilize the back of the gallbladder all the way up onto the cystic plate nicely and the cystic duct was seen and clipped proximally and distally and transected. This was taken right at the gallbladder neck/cystic duct junction. Then the gallbladder was removed from the gallbladder bed using electrocautery. Eventually, the gallbladder was placed in an EndoCatch bag and brought out through the umbilicus. The right upper quadrant was copiously irrigated until clear. The operative field was clean and dry, but the falciform where it attached on the capsule with mobilization of the gallbladder had avulsed a little bit and was oozing from this edge. With some mild pressure and some Gilberto, this was well controlled. The same thing in the bed of the dissection, it was all clean and dry with Gilberto placed in this as well. All trocars were removed under direct visualization. #0 Vicryl was used close the fascia at the umbilicus and all incisions were closed with #4-0 Vicryl. Steri-Strips and a dry sterile dressing was applied. The patient was awakened, extubated and brought to the recovery room awake, alert and hemodynamically stable.
[2019-01-29] MEDS ORDERED: RAMIPRIL 5 MG CAP PO SCH (21:00)
[2019-01-30] MEDS: KETOROLAC 30 MG/ML VIAL (J1885) IV SCH ×2 (00:17→06:28)
[2019-01-30] MEDS: ACETAMINOPHEN TAB 650MG DOSE (2X325MG) PO SCH (05:30)
[2019-01-30] MEDS: PIPERACILLIN/TAZOBACTAM SOD 3.375 GM in D5W MINI-BAG PLUS 50 ML IV SCH (05:31)
[2019-01-30 06:16] VITALS: BP 140/65
[2019-01-30 06:40] LABS: BASO % 0.4 % (0.0-1.0); EOS # 0.1 10^3/uL (0.0-0.5); EOS % 1.3 % (0.0-3.0); HEMOGLOBIN 11.6 g/dl (13.5-17.5); LYMPH # 1.1 10^3/uL (1.5-5.0); LYMPH % 13.4 % (24.0-44.0); MEAN CORPUSCULAR HEMOGLOBIN 31.8 pg (27.0-33.0); MEAN CORPUSCULAR HGB CONC 32.2 g/dl (32.0-36.5); MEAN CORPUSCULAR VOLUME 98.6 fl (80.0-96.0); MONO # 0.8 10^3/uL (0.0-0.8); MONO % 9.3 % (0.0-5.0); NEUTROPHILS # 6.2 10^3/uL (1.5-8.5); NEUTROPHILS % 75.1 % (36.0-66.0); PLATELET COUNT, AUTOMATED 192 10^3/uL (150-450); RED BLOOD COUNT 3.65 10^6/uL (4.30-6.10); WHITE BLOOD COUNT 8.3 10^3/uL (4.0-10.0)
[2019-01-30 07:05] LABS: ALBUMIN 2.7 GM/DL (3.2-5.2); BILIRUBIN,TOTAL 0.9 MG/DL (0.2-1.0); CALCIUM LEVEL 8.5 MG/DL (8.8-10.2); CREATININE FOR GFR 1.36 MG/DL (0.70-1.30); GLOMERULAR FILTRATION RATE 54.8 (>42); POTASSIUM SERUM 3.8 MEQ/L (3.5-5.1); TOTAL PROTEIN 6.5 GM/DL (6.4-8.2)
[2019-01-30 08:44] VITALS: BP 151/73
[2019-01-30] MEDS: amLODIPine 5 MG TAB PO SCH (08:44)
[2019-01-30] MEDS ORDERED: ACET500T15 PO (10:52)
--- NOTE | 2019-01-30 11:02 | DS.PDOC ---
Discharge Summary General Date of Admission Jan 26, 2019 at 09:02 Date of Discharge 01/30/19 Discharge Summary PROCEDURES PERFORMED DURING STAY: 01/28/19: Laparoscopic cholecystectomy DISCHARGE DIAGNOSES: Acute Cholecystitis due to Gall stone S/p Cholecystectomy By Dr Goff SECONDARY DIAGNOSIS: Hypertension, hyperlipidemia, chronic kidney disease stage III, impaired fasting glucose, increased prostate-specific antigen (PSA) with prostate biopsy in 2008, obesity, bipolar disorder, nonalcoholic fatty liver disease, benign prostatic hypertrophy (BPH), lumbar disc disease and insomnia COMPLICATIONS/CHIEF COMPLAINT: Acute Cholecystitis. HISTORY OF PRESENT ILLNESS:See History and physical HOSPITAL COURSE: Generally awake, alert, oriented times three, laying down in bed in no acute distress. HEENT: anicteric, no jaundice. MADDI NECK: No jugular venous distention (JVD). No thyromegaly. Lungs are clear to auscultation. No wheezing, rales or rhonchi. Heart S1, S2, sinus rhythm. No murmurs, rubs or gallops. Abdomen is soft, tender in the epigastrium, right upper quadrant. No rebound or guarding. Positive bowel sounds times four quadrants. Extremities no cyanosis, clubbing or pitting edema. Labs and radiology: Reviewed. ASSESSMENT AND PLAN: This is a 74-year-old male with a past medical history significant for hypertension, hyperlipidemia, chronic kidney disease stage III, impaired fasting glucose, increased prostate-specific antigen (PSA) with prostate biopsy in 2008, obesity, bipolar disorder, nonalcoholic fatty liver disease, benign prostatic hypertrophy (BPH), lumbar disc disease and insomnia presented to the emergency room with complaints of severe right upper quadrant abdominal pain for 2 days . He was found to have acute Cholecystitis with Gall stone at the neck of the gall bladder but none in chantal CBD. No biliary ductal obstruction. Acute cholecystitis with gall stones at the neck of gall bladder s/p laprascopic cholecystectomy on 01/28/19 regular diet. Hypertension felodipine ramipril Hyperlipidemia continue statin CKD stage III creatinine at baseline will continue to monitor. Bipolar disorder, Insomnia. clonazepam prn. DISCHARGE MEDICATIONS: Please see below. ALLERGIES: Please see below. PHYSICAL EXAMINATION ON DISCHARGE: VITAL SIGNS: Please see below. Generally awake, alert, oriented times three, laying down in bed in no acute distress. HEENT: anicteric, no jaundice. MADDI NECK: No jugular venous distention (JVD). No thyromegaly. Lungs are clear to auscultation. No wheezing, rales or rhonchi. Heart S1, S2, sinus rhythm. No murmurs, rubs or gallops. Abdomen is soft, tender in the epigastrium, right upper quadrant. No rebound or guarding. Positive bowel sounds times four quadrants. Extremities no cyanosis, clubbing or pitting edema. LABORATORY DATA: Please see below. ACTIVITY: [As tolerated]. DIET: Regular DISCHARGE PLAN: Home DISPOSITION: . DISCHARGE INSTRUCTIONS: Follow up PMD in 1week DISCHARGE CONDITION: [Stable]. TIME SPENT ON DISCHARGE: 35 minutes. Vital Signs/I&Os Vital Signs Date Time Temp Pulse Resp B/P (MAP) Pulse Ox O2 Delivery O2 Flow Rate FiO2 01/30/19 08:44 68 151/73 01/30/19 06:16 98.5 16 94 Room Air 01/29/19 04:00 2.0 I&O- Last 24 Hours up to 6 AM 01/30/19 06:00 Intake Total 1670 ml Balance 1670 ml Laboratory Data Labs 24H Laboratory Tests 2 01/30/19 06:28: Immature Granulocyte % (Auto) 0.5, Neutrophils (%) (Auto) 75.1H, Lymphocytes (%) (Auto) 13.4L, Monocytes (%) (Auto) 9.3H, Eosinophils (%) (Auto) 1.3, Basophils (%) (Auto) 0.4, Neutrophils # (Auto) 6.2, Lymphocytes # (Auto) 1.1L, Monocytes # (Auto) 0.8, Eosinophils # (Auto) 0.1, Basophils # (Auto) 0.0, Nucleated Red Blood Cells % (auto) 0.0, Anion Gap 5L, Glomerular Filtration Rate 54.8, Calcium Level 8.5L, Total Bilirubin 0.9, Aspartate Amino Transf (AST/SGOT) 57H, Alanine Aminotransferase (ALT/SGPT) 91H, Alkaline Phosphatase 125H, Total Protein 6.5, Albumin 2.7L, Albumin/Globulin Ratio 0.71L CBC/BMP Laboratory Tests 01/30/19 06:28 Microbiology Microbiology 01/26/19 Blood Culture - Preliminary, Resulted No Growth after 72 hours. All specime... 01/26/19 Blood Culture - Preliminary, Resulted No Growth after 72 hours. All specime... Discharge Medications Scheduled Aspirin (Aspirin EC) 81 Mg Tablet.dr, 81 MG PO QHS, (Reported) Atorvastatin Calcium (Atorvastatin Calcium) 40 Mg Tablet, 40 MG PO QHS, (Reported) Clonazepam (Clonazepam) 0.5 Mg Tab.rapdis, 0.5 MG PO DAILY, (Reported) Felodipine (Felodipine ER) 5 Mg Tab.er.24h, 5 MG PO DAILY, (Reported) Ramipril (Altace) 10 Mg Capsule, 10 MG PO QPM, (Reported) Scheduled PRN Acetaminophen (Acetaminophen) 500 Mg Tablet, 2 TAB PO Q8HP PRN for PAIN Ibuprofen (Advil) 100 Mg Tablet, 300 MG PO TID PRN for PAIN, (Reported) Allergies Coded Allergies: amlodipine (Verified Allergy, Unknown, nausea, 01/26/19) erythromycin base (Verified Allergy, Unknown, 01/26/19) MIMI ESPINO MD Jan 30, 2019 11:02
--- NOTE | 2019-01-30 13:55 | IPN ---
DATE: 01/30/2019 HISTORY: The patient is now postop day #2 from a laparoscopic cholecystectomy for acute cholecystitis. He has done very well following surgery. Vital signs: Show that he has been afebrile over the past 24 hours. His pulse is in the 60s and 70s and his blood pressure is excellent. Intake and output show that yesterday he had 2300 in with 200 recorded out but he had several other voids and a bowel movement noted. PHYSICAL EXAMINATION: The patient is alert. He appears comfortable and he moves well without apparent discomfort. Heart exam shows a regular rhythm. The lungs are clear. The abdomen is flat and soft and without any undue tenderness. He has four small bandages in place, which appear clean and dry. Laboratory studies today show his white count is normal at 8 with a differential showing 75% neutrophils, 13% lymphocytes, 9% monocytes. Hemoglobin is 12 with a hematocrit of 36 and platelet count is 192,000. Chemistry profile shows sodium 141, potassium 3.8, chloride 109, CO2 of 27, BUN of 24, creatinine 1.36 and a glucose of 120. His total bilirubin has fallen from yesterday when it was 1.2 down to 0.9. AST and ALT year 57 and 91, respectively and these are not significantly changed and the alkaline phosphatase is minimally elevated at 125. IMPRESSION: The patient is doing very well 2 days postop from a laparoscopic cholecystectomy for acute cholecystitis. He has been continued on Zosyn since before surgery. He is tolerating a regular diet and has noted return of bowel function. He is voiding without difficulty. He is not requiring any significant medication for pain. RECOMMENDATIONS: At this point, I believe the patient is safe for discharge. He was planning on flying back to [place], which is his home, the following day. I believe it would be safe at this point to stop his antibiotics. He was counseled that he should avoid any strenuous activity for the next 2 weeks or so. I advised him to follow up with his primary physician in [place] when he returns home. He can shower as desired and eat a diet as he chooses. I did suggest he avoid high fat foods for a while until he sees how a system adjusts.
== END 2019-01-30 11:24 | disposition home or self-care (01) | DRG 419 ==
LOC: M ED 01:29 → M ED INP 09:02 → M PCU 16:29 → M MS4PR 01-27 22:06
PROVIDERS: ADMIT General Practice; ATTEND Internal Medicine Nephrology
PROC: 0FT44ZZ Resection of Gallbladder, Percutaneous Endoscopic Approach (ICD-10-PCS; principal; 2019-01-28 15:53)
DX: K80.00 Calculus of gallbladder with acute cholecystitis without obstruction (principal); F31.9 Bipolar disorder, unspecified; G47.00 Insomnia, unspecified; K76.0 Fatty (change of) liver, not elsewhere classified; N40.0 Benign prostatic hyperplasia without lower urinary tract symptoms; I12.9 Hypertensive chronic kidney disease with stage 1 through stage 4 chronic kidney disease, or unspecified chronic kidney disease; E78.5 Hyperlipidemia, unspecified; N18.3 Chronic kidney disease, stage 3 (moderate); R73.01 Impaired fasting glucose; E66.9 Obesity, unspecified; M51.86 Other intervertebral disc disorders, lumbar region; Z98.41 Cataract extraction status, right eye; Z98.42 Cataract extraction status, left eye; Z86.010 Personal history of colon polyps; Z87.891 Personal history of nicotine dependence; I16.0 Hypertensive urgency; Z68.31 Body mass index [BMI] 31.0-31.9, adult

== ENCOUNTER 2021-04-06 21:21 | Emergency (ER) | payer MEDICARE, OTHER ==
[~2021-04-06] VITALS: Ht 170.2 cm; Wt 84.1 kg
[~2021-04-06 21:21] MED LIST: ACET500T15 PO; ADVI100T PO; ALTA1CAP4 PO; ASPI81TA26 PO; ATOR40TA75 PO; CLON0.5T17 PO; FELO10TA28 PO; FELO5TAB26 PO
[2021-04-07] MEDS ORDERED: FLOM0.4C39 PO (01:42)
[2021-04-07 02:03] VITALS: BP 163/82
== END 2021-04-07 02:26 | disposition home or self-care (01) ==
LOC: M ED 21:21
DX: N20.0 Calculus of kidney (principal); N17.9 Acute kidney failure, unspecified; R73.9 Hyperglycemia, unspecified; N40.0 Benign prostatic hyperplasia without lower urinary tract symptoms; I10 Essential (primary) hypertension; E78.5 Hyperlipidemia, unspecified; Z79.899 Other long term (current) drug therapy; Z88.1 Allergy status to other antibiotic agents; Z88.8 Allergy status to other drugs, medicaments and biological substances; Z79.82 Long term (current) use of aspirin
CPT/HCPCS: 74176; 80047; 80076; 81001; 83690; 85025; 96374; 96375; 99284; J2270; J2405

== ENCOUNTER → 2021-08-17 | Outpatient (REF) | payer MEDICARE, OTHER ==
[~2021-08-17] MED LIST changes: +FLOM0.4C39 PO
[2021-08-17 18:11] LABS: AMORPHOUS SEDIMENT SMALL (NEGATIVE); APPEARANCE, URINE HAZY (CLEAR); BACTERIA, URINE AUTO NEGATIVE (NEGATIVE); BILIRUBIN, URINE AUTO NEGATIVE (NEGATIVE); BLOOD, URINE BLOOD NEGATIVE (NEGATIVE); CALCIUM OXALATE CRYSTALS SMALL; COLOR, URINE YELLOW (YELLOW); GLUCOSE, URINE (UA) AUTO NEGATIVE (NEGATIVE); KETONE, URINE AUTO TRACE mg/dL (NEGATIVE); LEUKOCYTE ESTERASE, URINE AUTO NEGATIVE (NEGATIVE); MUCUS, URINE SMALL (NEGATIVE); NITRITE, URINE AUTO NEGATIVE (NEGATIVE); PROTEIN, URINE AUTO 2+ mg/dL (NEGATIVE); RBC, URINE AUTO 0 /HPF (0-3); SPECIFIC GRAVITY URINE AUTO 1.018 (1.002-1.035); SQUAMOUS EPITHELIAL CELL UR AU 0 /HPF (0-6); UROBILINOGEN, URINE AUTO 0.2 mg/dL (0.0-2.0); WBC, URINE AUTO 3 /HPF (0-3)
== END ==
LOC: M SMT 16:49
PROVIDERS: ATTEND Physician Assistant
DX: R35.0 Frequency of micturition (principal)

== ENCOUNTER 2022-03-14 17:18 | Emergency (ER) | payer MEDICARE, OTHER ==
[~2022-03-14] VITALS: Ht 170.2 cm; Wt 85.9 kg
[2022-03-14] MEDS ORDERED: DONE5TAB82 PO (18:13)
[2022-03-14] MEDS ORDERED: TAMS1CAP17 PO (18:13)
[2022-03-14] MEDS ORDERED: TRAZ-252 PO (18:13)
[2022-03-14] MEDS ORDERED: MEMA1TAB3 PO (18:13)
[2022-03-14] MEDS ORDERED: traMADol 50 MG TAB PO ONE (19:50)
[2022-03-14] MEDS ORDERED: LIDOCAINE 5% (LIDODERM) PATCH TD ONE (19:50)
[2022-03-14] MEDS ORDERED: TRAM50TA2 PO (20:29)
[2022-03-14 20:43] VITALS: BP 146/88
== END 2022-03-14 20:45 | disposition home or self-care (01) ==
LOC: M ED 17:18
DX: M54.50 Low back pain, unspecified (principal); M25.552 Pain in left hip; I10 Essential (primary) hypertension; E78.5 Hyperlipidemia, unspecified; F41.9 Anxiety disorder, unspecified; Z87.442 Personal history of urinary calculi; Z88.1 Allergy status to other antibiotic agents; Z88.8 Allergy status to other drugs, medicaments and biological substances; Z79.82 Long term (current) use of aspirin; Z79.811 Long term (current) use of aromatase inhibitors; Z79.899 Other long term (current) drug therapy

== ENCOUNTER → 2022-03-15 | Outpatient (CLI) | payer MEDICARE, OTHER ==
[~2022-03-15] MED LIST changes: +DONE5TAB82 PO; +MEMA1TAB3 PO; +TAMS1CAP17 PO; +TRAM50TA2 PO; +TRAZ-252 PO
== END ==
LOC: M RAD 13:36
PROVIDERS: ATTEND Emergency Medicine
DX: M47.812 Spondylosis without myelopathy or radiculopathy, cervical region (principal)

== ENCOUNTER → 2022-03-20 | Outpatient (CLI) | payer MEDICARE, OTHER ==
[2022-03-20 19:23] LABS: BLOOD UREA NITROGEN 20 MG/DL (9-23); GLOMERULAR FILTRATION RATE > 60.0 (>42)
== END ==
LOC: M LAB 18:33
DX: Z01.812 Encounter for preprocedural laboratory examination (principal)

== ENCOUNTER → 2022-03-21 | Outpatient (CLI) | payer MEDICARE, OTHER ==
[~2022-03-21] MED LIST changes: +PROHANCE 279.3MG/ML 15ML VIAL As Ordered ONE; +PROHANCE 279.3MG/ML 5ML VIAL As Ordered ONE
== END ==
LOC: M RAD 07:15
DX: M94.252 Chondromalacia, left hip (principal); M25.552 Pain in left hip; R26.2 Difficulty in walking, not elsewhere classified
CPT/HCPCS: 73723; A9576